=== PATIENT | female | born 1980 | race Caucasian/White ===

== ENCOUNTER → 2019-11-23 11:15 | Outpatient (CLI) | payer BC, SELFPAY ==
--- NOTE | ~2019-11-23 | MM_ITS ---
EXAMINATION: MM screening mervat BI w carolyn HISTORY: Screening mammogram TECHNIQUE: Bilateral rotated lateral cc views. Craniocaudal and mediolateral oblique 3-D tomosynthesi s images were obtained and synthetic 2-D images were generated. CAD analysis was submitted and interp reted. COMPARISON: No prior mammogram is available for comparison at this institution. BREAST PARENCHYMAL COMPOSITION: There are scattered areas of fibroglandular density. FINDINGS: There is no evidence of suspicious mass, calcification, or architectural distortion to sugg est malignancy in either breast. There has been no suspicious interval change. IMPRESSION: 1. No mammographic evidence of malignancy. 2. Recommend routine screening mammography in one year. BI-RADS Category 1: Negative Reviewed, dictated and finalized at location A. BUYER
== END ==
DX: Z12.31 Encounter for screening mammogram for malignant neoplasm of breast (principal)
CPT/HCPCS: 77063; 77067

== ENCOUNTER → 2019-12-18 10:14 | Outpatient (CLI) | payer BC, SELFPAY ==
--- NOTE | ~2019-12-18 | US_ITS ---
US abdomen complete EXAMINATION: US Abdomen Complete INDICATION: Right upper quadrant pain. PROCEDURE: Realtime High Resolution abdomen ultrasound. COMPARISON: No prior studies for comparison FINDINGS: Gallbladder within normal limits. No gallstones, pericholecystic fluid, gallbladder wall t hickening or biliary dilatation. Common bile duct measures 3 mm. Liver echotexture is homogeneous. There are multiple liver cysts, largest measuring 1.3 cm.. Pancrea s within normal limits. Pancreatic tail is obscured by bowel gas. Spleen is unremarkeable. Renal ec hotexture is within normal limits bilaterally without hydronephrosis, solid mass or renal stone. Ther e is a left renal cyst measuring 2.3 cm. Right kidney measures 9.8 cm. Left kidney measures 12.3 cm. Visualized aspects of the aorta and IVC are within normal limits. Portal vein is patent. No sonograph ic Harris's sign indicated by the technologist. IMPRESSION: 1: Liver and left renal cysts. Reviewed, dictated and finalized at location A.
== END ==
PROVIDERS: PCP Physician Assistant; Visit Provider Physician Assistant
DX: N28.1 Cyst of kidney, acquired (principal); K76.89 Other specified diseases of liver
CPT/HCPCS: 76700

== ENCOUNTER → 2020-01-02 10:49 | Outpatient (CLI) | payer BC, SELFPAY ==
--- NOTE | ~2020-01-02 | XR_ITS ---
EXAMINATION: XR UGIAC w kub DATE: 01/02/2020 11:50 INDICATION: Chest pain and dysphagia TECHNIQUE: The patient drank thick barium, gas-producing crystals, and thin barium. Balling Machine Operator radiographs were obtained. Fluoroscopy of the esophagus, stomach, and proximal small bowel were performed. Fluor oscopy exposure time was 1.6 minutes. The DAP for this procedure was 16.196 Gycm2. COMPARISON: None. FINDINGS: Balling Machine Operator radiograph is unremarkable without evidence of dilated bowel. There is no mass or str icture of the esophagus. Esophageal motility is normal. There is no hiatal hernia. There was no rigo roesophageal reflux with provocative maneuvers. The stomach and proximal small bowel show normal fold ing patterns. IMPRESSION: 1. Unremarkable upper GI. No correlate for the patient's symptoms. Reviewed, dictated and finalized at location B.
== END ==
PROVIDERS: PCP Physician Assistant; Visit Provider Physician Assistant
DX: R13.10 Dysphagia, unspecified (principal)
CPT/HCPCS: 74246

== ENCOUNTER 2020-05-22 15:47 | Outpatient (CLI) | payer BC, SELFPAY ==
--- NOTE | ~2020-05-22 | US_ITS ---
US venous doppler [facility] DATE: 05/22/2020 16:15 INDICATION: Left calf pain TECHNIQUE: Real-time and color flow imaging and Doppler analysis of the left lower extremity COMPARISON: None FINDINGS: The left greater saphenous vein is patent. There is spontaneous and phasic flow and normal augmentation and color flow signal and normal compression of the deep veins of the left leg. IMPRESSION: Negative examination Reviewed, dictated and finalized at Location [facility]. Reviewed, dictated and finalized at location A. IMPRESSION: Negative examination
== END 2020-05-22 15:48 | disposition home or self-care (01) ==
LOC: ANHIMG 15:48
PROVIDERS: PCP Physician Assistant; Visit Provider Physician Assistant
DX: M79.662 Pain in left lower leg (principal)
CPT/HCPCS: 93971

== ENCOUNTER 2020-06-18 14:29 | Outpatient (CLI) | payer BC, SELFPAY ==
--- NOTE | ~2020-06-18 | CT_ITS ---
EXAMINATION: CTA chest PE protocol DATE: 06/18/2020 15:01 INDICATION: Left-sided chest pain TECHNIQUE: Computed tomography angiography (CTA) of the chest was performed with 100 mL Omnipaque-350 intravenous contrast timed to evaluate the pulmonary arteries. Coronal maximum intensity projection 3D-reconstructions were created by the technologist. Automated exposure control and iterative reconst ruction technique were employed. Exam dose: 367.98 mGy-cm total exam DLP. COMPARISON: None. FINDINGS: There is diagnostic contrast enhancement of the pulmonary arteries and no evidence of pulmo nary embolism. No thoracic aortic aneurysm or dissection. No hilar or mediastinal mass lesion or lymphadenopathy. No pulmonary infiltrate or consolidation or pulmonary mass lesion. IMPRESSION: No evidence of pulmonary embolism Reviewed, dictated and finalized at [facility]. Reviewed, dictated and finalized at location A.
--- NOTE | ~2020-06-18 | XR_ITS ---
EXAMINATION: XR thoracic spine 3V EXAM DATE: 06/18/2020 15:09 INDICATION: Thoracic pain, right scapular pain. No known injury. TECHNIQUE: Frontal and lateral projections of the thoracic spine as well as lateral swimmers projecti on of the upper thoracic spine for interpretation. There is no prior study for comparison. FINDINGS: Contrast within the renal collecting systems from pulmonary CT obtained earlier. Evidence of mild mid and lower thoracic disc disease without endplate erosive change. The vertebral bodies are aligned in the AP dimension. Paraspinal soft tissue is unremarkable. IMPRESSION: Mild mid and lower thoracic spondylosis. Reviewed, dictated and finalized at location A.
== END 2020-06-18 14:30 | disposition home or self-care (01) ==
PROVIDERS: PCP Physician Assistant; Visit Provider Physician Assistant
DX: R07.9 Chest pain, unspecified (principal); M47.894 Other spondylosis, thoracic region
CPT/HCPCS: 71275; 72072; Q9967

== ENCOUNTER → 2022-06-11 11:55 | Outpatient (CLI) | payer BC, SELFPAY ==
--- NOTE | ~2022-06-11 | XR_ITS ---
XR lumbar spine 2-3V DATE: 06/11/2022 12:13 INDICATION: Sciatica TECHNIQUE: AP, lateral, coned lateral lumbosacral views COMPARISON: None FINDINGS: There are 4 functional lumbar vertebra. There is a transitional lumbosacral vertebra. No fracture or bone destruction or spondylolisthesis. The included lower thoracic and lumbar pedicles are intact. There is minimal degenerative disc disease. The sacroiliac joints are normal. IMPRESSION: Transitional lumbosacral vertebra Mild degenerative disc disease Reviewed, dictated and finalized at location B.
== END ==
PROVIDERS: PCP Physician Assistant; Visit Provider Physician Assistant
DX: M54.32 Sciatica, left side (principal); M51.36 Other intervertebral disc degeneration, lumbar region
CPT/HCPCS: 72100

== ENCOUNTER 2023-12-10 08:21 | Outpatient (CLI) | payer BC, SELFPAY ==
--- NOTE | ~2023-12-10 | MR_ITS ---
EXAMINATION: MR hip RT wo con DATE: 12/10/2023 09:15 INDICATION: Greater trochanteric pain syndrome TECHNIQUE: Magnetic resonance imaging (MRI) of the right hip was performed without intravenous contr ast. Sequences included full-field axial PD-weighted FS FSE and T1-weighted FSE, coronal of the pelvi s with PD-weighted FS FSE, T2-weighted FSE and T1-weighted FSE, small field of view of the right hip with axial PD-weighted FS FSE, sagittal PD-weighted FS FSE, coronal PD-weighted FS FSE and coronal T2 weighted FSE. Additional radial T1-weighted FGR oriented orthogonal to the acetabular rim were obt ained for evaluation of the labrum. COMPARISON: None FINDINGS: Bones/labrum/cartilage: Alignment is normal. There is heterogeneous red and the marrow signal in the pelvis and proximal femu rs. No fracture, avascular necrosis or pathologic marrow replacing process. There is mild cystic mcgraw ge at the left anterosuperior femoral head neck junction where there appears be decreased offset whic h suggests possibility of associated cam-type femoral acetabular impingement. Mild osteoarthritis at the right hip with mild nonuniform partial-thickness cartilage loss. Partial-thickness tear along the chondral labral junction at the base of the anterosuperior to posterior superior right acetabular la cathy similar findings suggested the contralateral left hip on the larger [id number] images. Fluid: Symmetric physiologic amount of fluid within both hip joints. Soft tissues: Normal and symmetric muscle bulk and signal in the pelvis and visualized proximal thighs. Mild tendin opathy without tear at the right greater trochanteric insertion of the distal right gluteus medius mi nimus tendon. There is mild overlying increased fluid signal consistent with mild trochanteric bursit is. Remaining bilateral gluteal tendons along with the bilateral iliopsoas and proximal hamstring ten dons are normal. Limited evaluation of visceral organs of the pelvis is unremarkable. No pathologica lly enlarged pelvic/inguinal lymphadenopathy. IMPRESSION: 1. Mild right trochanteric bursitis with mild tendinopathy without tear of the distal right gluteus m inimus tendon. 2. Mild osteoarthritis at the right hip with anterosuperior to posterior superior labral tear. 3. Labral tear suggested but not diagnostically evaluated the contralateral left hip with there is cy stic change and decreased offset at the anterosuperior femoral head neck junction suggesting cam-type femoral acetabular impingement. Reviewed, dictated and finalized at location B. FAMILY IMPRESSION: 1. Mild right trochanteric bursitis with mild tendinopathy without tear of the distal right gluteus minimus tendon. 2. Mild osteoarthritis at the right hip with anterosuperior to posterior superi or labral tear. 3. Labral tear suggested but not diagnostically evaluated the contralateral lef t hip with there is cystic change and decreased offset at the anterosuperior fe moral head neck junction suggesting cam-type femoral acetabular impingement.
== END 2023-12-10 08:22 ==
PROVIDERS: PCP Physician Assistant; Visit Provider Family Medicine Sports Medicine
DX: M70.61 Trochanteric bursitis, right hip (principal); M67.959 Unspecified disorder of synovium and tendon, unspecified thigh; M16.11 Unilateral primary osteoarthritis, right hip
CPT/HCPCS: 73721